=== PATIENT | female | born 1935 ===

== ENCOUNTER 2021-08-20 03:19 | Inpatient (IN) | payer MEDICARE ==
[~2021-08-20] VITALS: Ht 154.9 cm; Wt 102.6 kg
[2021-08-20] MEDS ORDERED: HUMULIN R100 UNIT/1 SC (11:05)
[2021-08-20] MEDS ORDERED: HUMULIN R100 UNIT/2 SC (11:06)
[2021-08-20] MEDS ORDERED: ACET500 (11:07)
[2021-08-20] MEDS ORDERED: ACET500 PO (11:07)
[2021-08-20] MEDS ORDERED: AMLO5 PO (11:07)
[2021-08-20] MEDS ORDERED: ATOR40TA PO (11:08)
[2021-08-20] MEDS ORDERED: CAND32 PO (11:08)
[2021-08-20] MEDS ORDERED: CRANBERRY500 M1 PO (11:09)
[2021-08-20] MEDS ORDERED: FERROUS GLUCON324 M7 PO (11:10)
[2021-08-20] MEDS ORDERED: B-12500 MC2 PO (11:10)
[2021-08-20] MEDS ORDERED: FURO40 PO (11:11)
[2021-08-20] MEDS ORDERED: GABA100 PO ×2 (11:13→11:14)
[2021-08-20] MEDS ORDERED: GLUCOSAMINE-CH1 EAC7 PO (11:16)
[2021-08-20] MEDS ORDERED: HUMULIN N100 UNIT/6 SC ×2 (11:18→11:19)
[2021-08-20] MEDS ORDERED: LACT PO (11:20)
[2021-08-20] MEDS ORDERED: LEVSOD112 PO (11:21)
[2021-08-20] MEDS ORDERED: MAGNESIUM OXID400 M1 PO (11:22)
[2021-08-20] MEDS ORDERED: MULVITA PO (11:22)
[2021-08-20] MEDS ORDERED: POTCHL20ER PO (11:23)
[2021-08-20] MEDS ORDERED: WARF2.5 PO (11:26)
[2021-08-20 13:28] LABS: International Normalized Ratio 1.69; Prothrombin Time Results 17.1 Sec (9.7-11.5)
--- NOTE | 2021-08-20 18:07 | NUR ---
SHIFT SUMMARY: PT WAS A DIRECT ADMIT FROM [facility] TODAY. HOSPTIALIST AND DR. PETTY IN TO SEE PT. NGT TO LIS SINCE ARRIVAL TO UNIT. MODERATE OUTPUT, GREEN/BROWN. PT REPORTS RELIEF SINCE NGT PLACED. INTERMITTENT CRAMPING TO ABD REPORTED RELIEF W/ IV FENTANYL. SBA TO BSC. URINE CLOUDY W/ ODOR. NOT PASSING FLATUS YET.
--- NOTE | 2021-08-20 22:12 | NUR ---
PT REPORTS CHRONIC BACK AND HIP PAIN WHICH SHE STATES KEEPS HER OFTEN CONFINED TO HER RECLINER AT HOME. DAY RN NOTED COCCYX ULCER ON ADMIT WHICH PT REPORTS HAS HAD X 2 YRS.PT VERB SUBLIMAZE IS NOT EFFECTIVE FOR HER PAIN CONTROL.PT UNABLE TO TURN TO HER SIDE DUE TO LIMITATION OF PAIN.I CALLED DR MAYER AND ADVISED OF ABOVE WELL DISCUSSED PT REPORT OF HX CKD STAGE 3.CBC WITH DIFF AND COMPREHENSIVE METABOLIC PANEL TO BE DRAWN TONIGHT INSTEAD OF AM. ALSO DOCTOR ORDERED 1 DOSE OF DILAUDID 1 MG, AND WILL BE PLACING PT ON CONTINUOUS PULSE OXIMETRY.
[2021-08-20 22:59] LABS: BASOPHILS ABSOLUTE AUTO 0.04 K/mm3 (0.00-0.23); BASOPHILS PERCENT AUTO 0 % (0-2); EOSINOPHILS ABSOLUTE AUTO 0.34 K/mm3 (0.00-0.68); EOSINOPHILS PERCENT AUTO 2 % (0-6); Hematocrit 37.9 % (33.0-51.0); Hemoglobin 12.2 g/dL (11.5-16.0); IMMATURE GRAN ABSOLUTE AUTO 0.06 K/mm3 (0.00-0.10); IMMATURE GRAN PERCENT AUTO 0 % (0-1); LYMPHOCYTES ABSOLUTE AUTO 3.42 K/mm3 (0.84-5.20); LYMPHOCYTES PERCENT AUTO 21 % (21-46); MONOCYTES ABSOLUTE AUTO 1.21 K/mm3 (0.16-1.47); MONOCYTES PERCENT AUTO 8 % (4-13); Mean Corpuscular HGB 30.2 pg (26.0-34.0); Mean Corpuscular HGB Conc 32.2 g/dL (31.5-36.5); Mean Corpuscular Volume 94 fL (80-100); Mean Platelet Volume 9.5 fL (9.1-12.4); NEUTROPHILS ABSOLUTE AUTO 11.03 K/mm3 (1.96-9.15); NEUTROPHILS PERCENT AUTO 69 % (41-73); Platelet Count 270 K/mm3 (150-400); RDW Coefficient Variation 15.5 % (11.7-14.2); RDW Standard Deviation 53.2 fL (35.1-46.3); Red Blood Cell Count 4.04 M/mm3 (3.80-5.20)
[2021-08-20 23:17] LABS: Albumin, Blood 2.9 g/dL (3.4-5.0); Albumin/Globulin Ratio 0.9 (0.8-1.8); Bilirubin, Total 0.7 mg/dL (0.1-1.0); Bun/Creatinine Ratio 21.1 (12.0-20.0); Calcium, Blood 9.1 mg/dL (8.5-10.1); Creatinine, Blood 1.14 mg/dL (0.40-1.00); Globulin, Blood 3.2 g/dL (2.2-4.0); Potassium, Blood 3.8 mmol/L (3.5-5.5); Total Protein, Blood 6.1 g/dL (6.4-8.2)
[2021-08-21 05:39] LABS: International Normalized Ratio 1.4; Prothrombin Time Results 14.4 Sec (9.7-11.5)
--- NOTE | 2021-08-21 07:33 | NUR ---
SUMMARY PT WAS ABLE TO GET TO BSC TONIGHT. DILAUDID DOSE REPORTED HELPED. PT HAD 100 ML OUT PER NG.VOIDING. WBC ELEVATE. DAY RN AGREES TO FOLLOW UP [facility]IH DR PETTY ON ROUNDING.
--- NOTE | 2021-08-21 16:43 | NUR ---
SHIFT SUMMARY PT A&OX4, VSS/1LNC-BIOX >94%/TELE NSR 80S. CBGS COV PER EMAR. NG TUBE WITH 300 OUT THIS SHIFT; CLAMPED SINCE NOON; MITA CLD/DENIES N&V. SBFT TODAY, MULTIPLE BMS (BROWN/LIQUID) SINCE/VOIDING WELL. SBA/FWW-STAND PIVOT TRANSFER TO BSC/BED/REPOSITIONS SELF WELL. DENIES NEED FOR PAIN MEDICATION T/O SHIFT. WILL REPORT TO ONCOMING NOC DONNELL.
[2021-08-22 04:35] LABS: Hematocrit 37.2 % (33.0-51.0); Hemoglobin 11.7 g/dL (11.5-16.0); Mean Corpuscular HGB 29.8 pg (26.0-34.0); Mean Corpuscular HGB Conc 31.5 g/dL (31.5-36.5); Mean Corpuscular Volume 95 fL (80-100); Mean Platelet Volume 9.3 fL (9.1-12.4); Platelet Count 288 K/mm3 (150-400); RDW Coefficient Variation 15.3 % (11.7-14.2); RDW Standard Deviation 53.1 fL (35.1-46.3); Red Blood Cell Count 3.93 M/mm3 (3.80-5.20); White Blood Cell Count 15.73 K/mm3 (4.00-11.30)
--- NOTE | 2021-08-22 04:52 | NUR ---
SUMMARY NO NEW CHANGES. PT REPORTS FEELING BETTER. PT DRINKING PO FLUIDS. PT HAVING LOOSE WATERY STOOLS AND VOIDING WELL. PT IS AMBULATING W/ FWW WELL AND IS TOLERATING. PT CURRENTLY RESTING COMFORTABLY AND IN NO DISTRESS. CALL LIGHT IN REACH.
[2021-08-22 04:53] LABS: International Normalized Ratio 1.34; Prothrombin Time Results 13.8 Sec (9.7-11.5)
[2021-08-22 05:02] LABS: Albumin/Globulin Ratio 0.8 (0.8-1.8); Bilirubin, Total 0.6 mg/dL (0.1-1.0); Calcium, Blood 8.8 mg/dL (8.5-10.1); Creatinine, Blood 1.05 mg/dL (0.40-1.00); Globulin, Blood 3.6 g/dL (2.2-4.0); Potassium, Blood 3.4 mmol/L (3.5-5.5); Total Protein, Blood 6.6 g/dL (6.4-8.2)
--- NOTE | 2021-08-22 14:52 | NUR ---
DISCHARGE: PACKET PRINTED AND PT EDUCATED. IVS DC'D WNL. NO SCRIPTS NEEDED. PT LEFT UNIT VIA WHEELCHAIR WITH SON AT ABOUT 1450
--- NOTE | 2021-08-22 14:52 | NUR ---
1444 DISCHARGE INSTRUCTIONS REVIEWED WITH PATIENT. PT DENIES ANY QUESTIONS. PT HAS FOLLOW UP APPT SCHEDULED. PT IN AGREEMENT WITH PLAN TO DISCHARGE TO HOME. DISCHARGED TO HOME WITH HER SON
== END 2021-08-22 14:46 | disposition home or self-care (01) | DRG 390 ==
LOC: SURS 03:19
PROVIDERS: Internal Medicine; Nurse Practitioner Acute Care; ADMIT Internal Medicine
DX: K56.609 Unspecified intestinal obstruction, unspecified as to partial versus complete obstruction (principal); I48.91 Unspecified atrial fibrillation; E11.22 Type 2 diabetes mellitus with diabetic chronic kidney disease; N18.30 Chronic kidney disease, stage 3 unspecified; E03.9 Hypothyroidism, unspecified; I12.9 Hypertensive chronic kidney disease with stage 1 through stage 4 chronic kidney disease, or unspecified chronic kidney disease; D72.829 Elevated white blood cell count, unspecified; E05.90 Thyrotoxicosis, unspecified without thyrotoxic crisis or storm; E66.01 Morbid (severe) obesity due to excess calories; Z79.01 Long term (current) use of anticoagulants; Z79.4 Long term (current) use of insulin; Z79.899 Other long term (current) drug therapy; Z88.8 Allergy status to other drugs, medicaments and biological substances; Z88.2 Allergy status to sulfonamides; Z90.710 Acquired absence of both cervix and uterus; K57.90 Diverticulosis of intestine, part unspecified, without perforation or abscess without bleeding; Z90.49 Acquired absence of other specified parts of digestive tract; Z98.890 Other specified postprocedural states
CPT/HCPCS: 36415; 74250; 80053; 82947; 83735; 85025; 85027; 85610; 94762; A9270; J1170; J3010; J7030

== ENCOUNTER 2022-01-27 12:48 | Inpatient (IN) | payer MEDICARE ==
[~2022-01-27] VITALS: Wt 100.7 kg
[~2022-01-27 12:48] MED LIST: ACET500; ACET500 PO; AMLO5 PO; ATOR40TA PO; B-12500 MC2 PO; CAND32 PO; CRANBERRY500 M1 PO; FERROUS GLUCON324 M7 PO; FURO40 PO; GABA100 PO; GLUCOSAMINE-CH1 EAC7 PO; HUMULIN N100 UNIT/6 SC; HUMULIN R100 UNIT/1 SC; HUMULIN R100 UNIT/2 SC; LACT PO; LEVSOD112 PO; MAGNESIUM OXID400 M1 PO; MULVITA PO; POTCHL20ER PO; WARF2.5 PO
[2022-01-27] MEDS ORDERED: Tessalon200 MG PO (12:56)
[2022-01-27] MEDS ORDERED: Calcium Carbon500 MG PO (12:57)
--- NOTE | 2022-01-28 04:28 | NUR ---
SHIFT SUMMARY PATIENT AOX4, NG TUBE IN PLACE AND SECURED. SUCTION SET TO LOW INTERMITTENT. MINIMAL GREENISH DRAINAGE IN TUBE. PATIENT NPO AT THIS TIME. PATIENT ABLE TO GET UP TO BSC SBA. SITS IN RECLINER AND REPOSITIONS EASILY. SMALL REDDENED AREA ON COCCYX, MEPILEX PLACED FOR PROTECTION. MEDICATED FOR PAIN, HEAT PAD TO BACK. PATIENT REPORTS ADQUATE RELIEF. FLUIDS INFUSING IN 20G R AC. CALLS APPROPRIATELY, VSS. WILL REPORT TO DAY RN.
[2022-01-28 05:09] LABS: Hematocrit 36.5 % (33.0-51.0); Hemoglobin 11.7 g/dL (11.5-16.0); Mean Corpuscular HGB 29.5 pg (26.0-34.0); Mean Corpuscular HGB Conc 32.1 g/dL (31.5-36.5); Mean Corpuscular Volume 92 fL (80-100); Mean Platelet Volume 9.9 fL (9.1-12.4); Platelet Count 283 K/mm3 (150-400); RDW Coefficient Variation 15.5 % (11.7-14.2); RDW Standard Deviation 52.7 fL (35.1-46.3); Red Blood Cell Count 3.96 M/mm3 (3.80-5.20); White Blood Cell Count 13.29 K/mm3 (4.00-11.30)
[2022-01-28 05:37] LABS: Bun/Creatinine Ratio 16.4 (12.0-20.0); Calcium, Blood 8.2 mg/dL (8.5-10.1); Creatinine, Blood 0.91 mg/dL (0.40-1.00)
--- NOTE | 2022-01-28 11:34 | NUR ---
Spiritua Care Pt. Request. Pt. is sitting up in a recliner and welcomes my visit. Spiritual Care was attempted earlier but the pt. was getting x-rays. Pt. is pleasant, but unsettled by having to be transferred to [facility] because of a lack of beds in the [facility]. Pt. is also unsettled by the recurring bowel blackage she has experienced. Matters of samuel are discussed, but pt. verbalizes that samuel has not been a currently active part of her life. Establish rapport and pray for the Pt. Pt. verbalizes gratitude for the spiritual care visit.
[2022-01-28 13:10] LABS: Source, Urine Clean Catch
[2022-01-28 13:14] LABS: Appearance, Urine Hazy (Clear); Bilirubin, Urine Neg (Neg); Blood, Urine 1+ (Neg); Color, Urine Yellow (P-Yellow); Glucose Qualitative, Urine Neg (Neg); Ketones, Urine 2+ (Neg); Leukocyte Esterase, Urine 1+ (Neg); Nitrite, Urine Neg (Neg); Protein, Urine 1+ (Neg); Urobilinogen, Urine NORM (Normal)
[2022-01-28 14:17] LABS: Bacteria Many /hpf; Squamous Epithelial Cells Few /hpf (Few)
--- NOTE | 2022-01-28 17:42 | NUR ---
SHIFT SUMMARY: SBO - NONSURGICAL PATIENT IS A&OX4. VS ARE WNL AND IS ON RA WITH >90% OXYGEN SATS. PATIENT DURING SHIFT HAS ONLY REPORTED PAIN ON HER LOWER BACK WHICH IS MANAGED WITH IV FENT. PATIENT HAD NG TUBE TAKEN OUT EARLIER THIS EVENING AND DENIES ANY NAUSEA/VOMITING SINCE. SHE IS TRYING CLEAR LIQUIDS FOR DINNER TONIGHT AND WAS REMINDED TO EAT SLOWLY. SHE IS INDEP. IN THE ROOM AND IS A SBA IN THE HALLWAYS. SHE HAD TWO BM'S TODAY AND IS VOIDING/PASSING GAS. PATIENT CALLS APPROPRIATELY. CALL LIGHT WITHIN REACH. THE PLAN IS TO ADVANCE DIET TO LOW FIBER DIET IN THE AM AND IF APPROPRIATE WILL DISCHARGE HOME TOMORROW.
--- NOTE | 2022-01-29 05:55 | NUR ---
PT HAD UNEVENTFUL NIGHT. VSS. PT DENIED ABD PAIN/N/V. PT HAD 2 BM THIS SHIFT, IS VOIDING URINE W/O DIFFICULTY. PT UP INDEP IN ROOM, SBA PRN. MOBILIZATION ENC PT MITA.
[2022-01-29] MEDS ORDERED: AMOCLA875 PO (09:27)
--- NOTE | 2022-01-29 13:14 | NUR ---
Pt. is awake sitting in a recliner and welcomes my visit. Pt. verbalizes that she is anticipating discharge this afternoon. Pt. displayed evidence of concern about the source cause of her bowel blockage, and verbalized that the hospital took a second set of images yesterday. Listen empathetically with a calming presence. Prayed for Pt. Pt. verbalized gratitude for the spiritual care visit.
--- NOTE | 2022-01-29 13:59 | NUR ---
DISCHARGE NOTE: PATIENT AND PATIENTS DAUGHTER WERE EDUCATED ON DISCHARGE INSTRUCTIONS. BOTH VERBALIZED UNDERSTANDING OF INSTRUCTIONS AND HAD NO FURTHER QUESTIONS AT THIS TIME. IV WAS TAKEN OUT AND WNL. SHE DENIES ANY PAIN. ABD IS SOFT AND BOWEL TONES ARE HYPERACTIVE. SHE IS TOLERATING PO INTAKE AND IS VOIDING/PASSING GAS/HAVING BM'S. PATIENT IS AMBULATING IN THE ROOM INDEP. SHE HAS HER PERSONAL ITEMS GATHERED IN THE ROOM. PATIENT IS DRESSED AND BEING WHEELCHAIRED OUT TO HER DAUGHTERS CAR TO BE TAKEN HOME. HER ABX WAS FAXED TO HER PREFERRED PHARMACY.
== END 2022-01-29 14:02 | disposition home or self-care (01) | DRG 389 ==
LOC: SURS 12:48
PROVIDERS: Internal Medicine; ADMIT Hospitalist
DX: K56.609 Unspecified intestinal obstruction, unspecified as to partial versus complete obstruction (principal); N39.0 Urinary tract infection, site not specified; Z68.45 Body mass index [BMI] 70 or greater, adult; E66.01 Morbid (severe) obesity due to excess calories; E03.9 Hypothyroidism, unspecified; I48.91 Unspecified atrial fibrillation; E11.22 Type 2 diabetes mellitus with diabetic chronic kidney disease; I12.9 Hypertensive chronic kidney disease with stage 1 through stage 4 chronic kidney disease, or unspecified chronic kidney disease; N18.30 Chronic kidney disease, stage 3 unspecified; Z74.09 Other reduced mobility; Z79.01 Long term (current) use of anticoagulants; Z79.899 Other long term (current) drug therapy; Z79.4 Long term (current) use of insulin
CPT/HCPCS: 36415; 74250; 80048; 81001; 82947; 85027; 87086; A9270; J0696; J1644; J3010; J7030